=== PATIENT | male | born 1990 | race African-American/Black ===

== ENCOUNTER → 2017-06-01 | Emergency (ER) | payer OTHER ==
[~2017-06-01] VITALS: Ht 180.3 cm; Wt 75.0 kg
[~2017-06-01] MED LIST: B-1100 MG PO; ESCITALOPRAM OX20 MG PO; HYDROXYZINE HCL50 MG PO; LIBRIUM25 MG PO; MELATIN3 MG PO; NEURONTIN300 MG PO; TRAZODONE HCL150 MG PO; VITAMIN B-1100 MG PO
[2017-06-01 07:16] LABS: HEMATOCRIT 41.2 % (38.0-50.0); MCH 31.4 PG (29.0-34.0); MCHC 35.2 G/DL (30.0-36.0); MCV 89.2 FL (86-99); MEAN PLAT.VOLUME 9.4 uM^3 (9.0-12.4); PLATELET COUNT 242 K/uL (156-360); RBC DIS.WIDTH-CV 12.5 % (11.8-14.6); RBC DIS.WIDTH-SD 40.9 % (39-53); RED BLOOD COUNT 4.62 M/uL (4.00-5.50); WHITE BLOOD COUNT 7.9 K/uL (4.1-10.2)
[2017-06-01 07:42] LABS: AMYLASE 63 IU/L (1-118); ANION GAP 22 MEQ/L (2-14); CHLORIDE 102 MEQ/L (99-109); POTASSIUM 3.6 MEQ/L (3.7-5.4); SAMPLE HEMOLYSIS CHECK 0; SAMPLE ICTERIC CHECK 0; SAMPLE LIPEMIA CHECK 0; SODIUM 142 MEQ/L (136-147); TOTAL BILIRUBIN 0.9 MG/DL (0.0-1.0)
[2017-06-01 07:48] LABS: ALKALINE PHOSPHATASE 39 IU/L (3-129); GFR ESTIMATE (CALCULATED) > 59 mL/min/; GLUCOSE 87 mg/dL (70-99); LIPASE 3 U/L (1.0-51.0); SERUM ETHYL ALCOHOL 93 mg/dL; UREA NITROGEN (BUN) 10 mg/dL (9-23)
[2017-06-01 07:52] LABS: TROP-I INTERPRETATION NEGATIVE; TROPONIN-I < 0.01 ng/mL (0.0-0.30)
[2017-06-01 09:41] LABS: ADD MIUA? YES; BILIRUBIN NEGATIVE; BLOOD NEGATIVE; COLOR YELLOW ((YELLOW)); GLUCOSE (STRIP) NEGATIVE; KETONES 80; LEUKOCYTES NEGATIVE; NITRITE NEGATIVE; PROTEIN (STRIP) 100; SPECIFIC GRAVITY 1.026 (1.000-1.030)
[2017-06-01 09:48] LABS: BACTERIA RARE /HPF; EPITHELIAL CELLS NONE SEEN /HPF; MUCUS TRACE /LPF; RED BLOOD CELLS 0-5 /HPF (0-5); WHITE BLOOD CELLS 0-5 /HPF (0-5)
[2017-06-01 10:21] LABS: AMPHETAMINE NEGATIVE (500 ng/mL); COCAINE NEGATIVE (150 ng/mL); METHAMPHETAMINE NEGATIVE (500 ng/mL); OPIATES (MORPHINE) NEGATIVE (100 ng/mL); PHENCYCLIDINE NEGATIVE (25 ng/mL); THC CANNABINOIDS NEGATIVE (50 ng/mL)
[2017-06-01 10:22] LABS: BARBITURATES NEGATIVE (200 ng/mL); BENZODIAZEPINES NEGATIVE (150 ng/mL); INTERNAL CONTROLS VALID? YES; METHADONE NEGATIVE (200 ng/mL); OXYCODONE NEGATIVE (100 ng/mL); PROPOXYPHENE NEGATIVE (300 ng/mL); TRICYCLIC ANTIDEPRESSANTS NEGATIVE (300 ng/mL)
[2017-06-01 10:36] LABS: TROP-I INTERPRETATION NEGATIVE; TROPONIN-I < 0.01 ng/mL (0.0-0.30)
[2017-06-01 11:09] VITALS: BP 109/87
== END | disposition home or self-care (01) ==
LOC: EME 06:43
PROVIDERS: Nurse Practitioner Family
DX: F10.239 Alcohol dependence with withdrawal, unspecified (principal); Y90.4 Blood alcohol level of 80-99 mg/100 ml; R07.9 Chest pain, unspecified; R10.84 Generalized abdominal pain; R11.0 Nausea
CPT/HCPCS: 71020; 80053; 81003; 82150; 83690; 84484; 85027; 93005; 99281; 99285; G0480; J1885; J2405; J3411; J7030

== ENCOUNTER 2017-06-05 23:07 | Emergency (ER) | payer OTHER ==
[~2017-06-05] VITALS: Ht 165.1 cm; Wt 76.9 kg
[~2017-06-05 23:07] MED LIST changes: -ESCITALOPRAM OX20 MG PO; -HYDROXYZINE HCL50 MG PO; -MELATIN3 MG PO; -NEURONTIN300 MG PO; -TRAZODONE HCL150 MG PO; -VITAMIN B-1100 MG PO
[2017-06-06 00:06] LABS: ADD MIUA? NO; BILIRUBIN NEGATIVE; BLOOD NEGATIVE; COLOR STRAW ((YELLOW)); GLUCOSE (STRIP) NEGATIVE; KETONES NEGATIVE; LEUKOCYTES NEGATIVE; NITRITE NEGATIVE; PROTEIN (STRIP) NEGATIVE; SPECIFIC GRAVITY 1.006 (1.000-1.030); UCUL ADDED? NO; UROBILINOGEN 0.2 MG/DL (0.2-1.0)
[2017-06-06 00:23] LABS: AMPHETAMINE NEGATIVE (500 ng/mL); BARBITURATES NEGATIVE (200 ng/mL); BENZODIAZEPINES NEGATIVE (150 ng/mL); COCAINE NEGATIVE (150 ng/mL); INTERNAL CONTROLS VALID? YES; METHADONE NEGATIVE (200 ng/mL); METHAMPHETAMINE NEGATIVE (500 ng/mL); OPIATES (MORPHINE) NEGATIVE (100 ng/mL); OXYCODONE NEGATIVE (100 ng/mL); PHENCYCLIDINE NEGATIVE (25 ng/mL); PROPOXYPHENE NEGATIVE (300 ng/mL); THC CANNABINOIDS NEGATIVE (50 ng/mL); TRICYCLIC ANTIDEPRESSANTS NEGATIVE (300 ng/mL)
[2017-06-06 00:29] LABS: HEMATOCRIT 37.3 % (38.0-50.0); MCH 31.8 PG (29.0-34.0); MCHC 35.4 G/DL (30.0-36.0); MCV 89.9 FL (86-99); PLATELET COUNT 207 K/uL (156-360); RBC DIS.WIDTH-CV 11.9 % (11.8-14.6); RED BLOOD COUNT 4.15 M/uL (4.00-5.50); WHITE BLOOD COUNT 5.6 K/uL (4.1-10.2)
[2017-06-06 00:41] LABS: CHLORIDE 107 mEq/L (99-109); POTASSIUM 3.1 mEq/L (3.7-5.4); SODIUM 141 mEq/L (136-147)
[2017-06-06 00:43] LABS: GLUCOSE 78 mg/dL (70-99)
[2017-06-06 00:44] LABS: ANION GAP 12 MEQ/L (2-14)
[2017-06-06 00:46] LABS: GFR ESTIMATE (CALCULATED) > 59 mL/min/; SERUM ETHYL ALCOHOL 363 mg/dL
[2017-06-06 00:47] LABS: UREA NITROGEN (BUN) 14 mg/dL (9-23)
[2017-06-06 06:09] VITALS: BP 109/70
[2017-06-06] MEDS ORDERED: TRAZODONE HCL150 MG PO (06:25)
[2017-06-06] MEDS ORDERED: HYDROXYZINE HCL50 MG PO (06:26)
[2017-06-06] MEDS ORDERED: NEURONTIN300 MG PO (06:26)
[2017-06-06] MEDS ORDERED: MELATIN3 MG PO (06:27)
[2017-06-06] MEDS ORDERED: ESCITALOPRAM OX20 MG PO (06:27)
== END 2017-06-06 12:43 | disposition home or self-care (01) ==
LOC: EME 23:07
PROVIDERS: Emergency Medicine
DX: F10.129 Alcohol abuse with intoxication, unspecified (principal); F14.10 Cocaine abuse, uncomplicated; R45.851 Suicidal ideations; F32.9 Major depressive disorder, single episode, unspecified; R44.0 Auditory hallucinations
CPT/HCPCS: 80048; 81003; 85027; 90839; 99281; 99284; G0480

== ENCOUNTER 2017-06-09 13:09 | Inpatient (IN) | payer OTHER ==
[~2017-06-09] VITALS: Ht 180.3 cm; Wt 75.0 kg
[~2017-06-09 13:09] MED LIST changes: +ESCITALOPRAM OX20 MG PO; +HYDROXYZINE HCL50 MG PO; +MELATIN3 MG PO; +NEURONTIN300 MG PO; +TRAZODONE HCL150 MG PO
[2017-06-09 14:43] LABS: HEMATOCRIT 39.8 % (38.0-50.0); MCH 31.4 PG (29.0-34.0); MCHC 34.9 G/DL (30.0-36.0); MCV 89.8 FL (86-99); MEAN PLAT.VOLUME 9.2 uM^3 (9.0-12.4); PLATELET COUNT 192 K/uL (156-360); RBC DIS.WIDTH-CV 11.9 % (11.8-14.6); RBC DIS.WIDTH-SD 39.6 % (39-53); RED BLOOD COUNT 4.43 M/uL (4.00-5.50); WHITE BLOOD COUNT 3.2 K/uL (4.1-10.2)
[2017-06-09 14:51] LABS: CHLORIDE 97 mEq/L (99-109); POTASSIUM 3.3 mEq/L (3.7-5.4); SODIUM 140 mEq/L (136-147)
[2017-06-09 14:53] LABS: GLUCOSE 63 mg/dL (70-99)
[2017-06-09 14:54] LABS: ANION GAP 26 MEQ/L (2-14)
[2017-06-09 14:55] LABS: TOTAL BILIRUBIN 0.9 mg/dL (0.0-1.0)
[2017-06-09 14:56] LABS: SERUM ETHYL ALCOHOL 262 mg/dL
[2017-06-09 14:57] LABS: ALKALINE PHOSPHATASE 45 IU/L (3-129); GFR ESTIMATE (CALCULATED) > 59 mL/min/
[2017-06-09 14:58] LABS: UREA NITROGEN (BUN) 9 mg/dL (9-23)
[2017-06-09] MEDS ORDERED: VITAMIN B-1100 MG PO (23:42)
[2017-06-10 00:41] VITALS: BP 123/84
[2017-06-10 03:31] VITALS: BP 123/84
[2017-06-10 07:48] VITALS: BP 132/72
[2017-06-10 12:11] VITALS: BP 192/72
[2017-06-10 15:38] VITALS: BP 109/67
[2017-06-10 22:18] LABS: ADD MIUA? YES; BILIRUBIN NEGATIVE; BLOOD SMALL; COLOR AMBER ((YELLOW)); GLUCOSE (STRIP) NEGATIVE; KETONES 20; LEUKOCYTES NEGATIVE; NITRITE NEGATIVE; PROTEIN (STRIP) 100; SPECIFIC GRAVITY 1.028 (1.000-1.030)
[2017-06-10 22:35] LABS: ADD MEDTOX COMMENT Y; AMPHETAMINE NEGATIVE (500 ng/mL); BARBITURATES NEGATIVE (200 ng/mL); BENZODIAZEPINES PRESUMPTIVE POSITIVE (150 ng/mL); COCAINE NEGATIVE (150 ng/mL); INTERNAL CONTROLS VALID? YES; METHADONE NEGATIVE (200 ng/mL); METHAMPHETAMINE NEGATIVE (500 ng/mL); OPIATES (MORPHINE) NEGATIVE (100 ng/mL); OXYCODONE NEGATIVE (100 ng/mL); PHENCYCLIDINE NEGATIVE (25 ng/mL); PROPOXYPHENE NEGATIVE (300 ng/mL); THC CANNABINOIDS NEGATIVE (50 ng/mL); TRICYCLIC ANTIDEPRESSANTS NEGATIVE (300 ng/mL)
[2017-06-10 23:19] LABS: BENZODIAZEPINES, URINE SCREEN POSITIVE (200 ng/mL)
[2017-06-11 00:33] LABS: RED BLOOD CELLS 40-50 /HPF (0-5)
[2017-06-11 00:35] LABS: BACTERIA 3+ /HPF; CALCIUM OXALATE CRYSTALS 1+ /HPF; CRYSTALS PRESENT; EPITHELIAL CELLS NONE SEEN /HPF; MUCUS NONE SEEN /LPF
[2017-06-11 07:27] VITALS: BP 112/61
[2017-06-11 15:41] VITALS: BP 130/85
[2017-06-12 07:46] VITALS: BP 106/67
[2017-06-12] MEDS ORDERED: ESCITALOPRAM OX20 MG PO (08:53)
[2017-06-12] MEDS ORDERED: HYDROXYZINE HCL50 MG PO (08:53)
[2017-06-12] MEDS ORDERED: NEURONTIN300 MG PO (08:53)
[2017-06-12] MEDS ORDERED: NALTREXONE HCL50 MG PO (08:53)
[2017-06-12] MEDS ORDERED: TRAZODONE HCL150 MG PO (08:53)
== END 2017-06-12 10:44 | disposition home or self-care (01) | DRG 885 ==
LOC: EME 13:09 → 1WEST 23:37 → EDOF 23:37 → 1WEST 06-10 00:32
PROVIDERS: Emergency Medicine
DX: F33.2 Major depressive disorder, recurrent severe without psychotic features (principal); R45.851 Suicidal ideations; R10.9 Unspecified abdominal pain; F10.239 Alcohol dependence with withdrawal, unspecified; F10.229 Alcohol dependence with intoxication, unspecified; Z59.9 Problem related to housing and economic circumstances, unspecified; Z91.5 Personal history of self-harm; Z59.0 Homelessness; Z81.8 Family history of other mental and behavioral disorders
CPT/HCPCS: 80053; 81003; 84999; 85027; 90837; 97150 GO; 97165 GO; 99281; 99285; G0480; J1630; J2060; Q0177

== ENCOUNTER 2017-08-13 13:27 | Emergency (ER) | payer OTHER ==
[~2017-08-13] VITALS: Ht 177.8 cm; Wt 80.1 kg
[~2017-08-13 13:27] MED LIST changes: +NALTREXONE HCL50 MG PO; +VITAMIN B-1100 MG PO
[2017-08-13] MEDS ORDERED: ESCITALOPRAM OX20 MG PO (14:30)
[2017-08-13] MEDS ORDERED: NALTREXONE HCL50 MG PO (14:30)
[2017-08-13] MEDS ORDERED: NEURONTIN300 MG PO (14:30)
[2017-08-13] MEDS ORDERED: DESYREL 150 MG150 MG PO (14:30)
[2017-08-13] MEDS ORDERED: HYDROXYZINE HCL50 MG PO (14:30)
[2017-08-13 14:48] VITALS: BP 117/71
== END 2017-08-13 14:50 | disposition home or self-care (01) ==
LOC: EME 13:27
DX: F41.9 Anxiety disorder, unspecified (principal); F32.9 Major depressive disorder, single episode, unspecified; T50.996A Underdosing of other drugs, medicaments and biological substances, initial encounter; Z91.128 Patient's intentional underdosing of medication regimen for other reason; Z76.0 Encounter for issue of repeat prescription
CPT/HCPCS: 99281; 99283